=== PATIENT | female | born 1970 | race Caucasian/White ===

== ENCOUNTER 2023-11-29 11:21 | Emergency (ER) | payer BC, SELFPAY ==
[2023-11-29 11:27] VITALS: BP 171/107
--- NOTE | 2023-11-29 11:47 | ED.GENMED ---
History of Present Illness
General
Chief Complaint: Chest Pain
Source: patient
Exam Limitations: none
Time Seen by Provider: 11/29/23 11:33
Travel History
Have you had any contact with someone who has COVID-19?: No
Do you have any symptoms of coronavirus? Fever > 100 degrees, chills, cough, shortness of breath, sore throat, loss of taste or smell, muscle aches, or headache?: No
History of Present Illness
History of Present Illness:
See MDM
Past History
Past History
ED Past Medical History: HTN, Psychiatric (Anxiety) and Other (IBS, colitis); Negative Asthma, Hypercholesterolemia or NIDDM
ED Past Surgical History: Gynecological, Orthopedic (Rotator cuff repair) and Other (Breast augmentation, bilateral cataract surgery)
Social History
Tobacco: Non-smoker
Alcohol: Occasional
Personal:
Living: with family
Phy Exam
Physical Exam
Physical Exam:
See MDM
Scores
Heart Score for Chest Pain Patients
STEMI patient?: No
History: Slightly or Non-Suspicious
ECG: Nonspecific Repolarization
Age: >45 - <65 years
Risk Factors: 1 or 2 Risk Factors
Troponin: </= Normal Limit
Heart Score for Chest Pain Patients: 3
Heart Score Risk: 2.5% MACE over next 6 weeks
Course
Orders/Labs/Results
Orders:
Orders
11/29/23 11:22
EKG [Electrocardiogram (*1)] Urgent
Reason for Study: Atrial Fibrillation
EKG- Treatment ONCE
11/29/23 11:44
Ketorolac [Toradol] 30 mg IV NOW STA
Lorazepam [Ativan] 1 mg IV NOW STA
11/29/23 11:45
Test Result ONCE
CR Chest - 2 Views Urgent
Comment:
Reason For Exam: chest pain
11/29/23 12:07
Complete Blood Count/With Diff Urgent
Comprehensive Metabolic Panel Urgent
HCG, Serum Qualitative Screen Urgent
Troponin I Urgent
11/29/23 13:36
Troponin I Urgent
Abnormal Lab Results
11/29/23
12:07
Hct 36.2 L %
(37.0-47.0)
MCV 74.6 L fL
(81.0-99.0)
MCH 24.7 L pg
(27.0-31.0)
RDW 16.8 H %
(11.5-14.5)
Lymphocytes % 18.5 L %
(20.5-51.1)
Chloride 109 H mmol/L
(98-107)
11/29/23 12:07
11/29/23 12:07
Vital Signs
Initial and Last Documented VS:
Initial Vital Signs
Temp Pulse Resp BP Pulse Ox
98.2 F 94 16 171/107 98
11/29/23 11:27 11/29/23 11:27 11/29/23 11:27 11/29/23 11:27 11/29/23 11:27
Last Documented Vital Signs
Temp Pulse Resp BP Pulse Ox
98.2 F 83 26 137/81 97
11/29/23 11:27 11/29/23 15:00 11/29/23 15:00 11/29/23 15:00 11/29/23 15:00
MDM/Problems Addressed
Differential Diagnosis Includes:
HPI and MDM Narrative:
53-year-old female presenting with left-sided chest pain. Patient states it is going to her jaw. This started at rest at 9 AM. She does not believe there is an exertional component to this. When into the room, she is hyperventilating and clearly
anxious. She acknowledges that she has a history of anxiety. I will give IV Ativan but discussed that we will not base this on the setting of anxiety and will perform a 2 troponin rule out. Will obtain chest x-ray. No clinical signs of DVT. She
is neither tachycardic nor hypoxic.
Screening EKG does show subtle inferior ST depressions. We discussed ultimately seeing a last model department supervisor at some point whether or not she needs to be admitted for elevated troponin or outpatient follow-up
Physical exam
General: Hyperventilating, anxious
HEENT: protecting airway
Neck: appears supple
CV: No evidence of cyanosis. Regular rate and rhythm
Resp: No accessory muscle use. Lungs clear
Abd: Non-distended
Extremities: No deformities. No leg edema or tenderness
Neuro: alert
Psych: Anxious
Skin: Intact
Problems Addressed including Acute and Chronic Conditions affecting care:
1. Chest pain
Acuity: acute
Prognosis: stable
Details: Given the subtle EKG findings and complaint, will obtain 2 troponin rule out. Will give Toradol
2. Anxiety
Acuity: acute
Prognosis: stable
Details: Will give dose of IV Ativan
3. Hypertension
Acuity: acute
Prognosis: stable
Details: Patient has not yet started the 'water pill' prescribed by her primary care doctor. Will monitor blood pressure after giving Toradol and Ativan
Updates
On multiple reassessments, patient feeling better. Troponin negative x 2. Chest x-ray clear. Symptoms resolving. Blood pressure resolving. Discussed outpatient follow-up with PCP and cardiology
Differential Diagnosis (but not limited to): ACS, noncardiac chest pain, anxiety
Testing considered: D-dimer but no clinical evidence of DVT and she is neither tachycardic nor hypoxic
Drug therapy (if applicable): OTC meds, please see d/c instruction regarding Rx drugs
Amount and/or Complexity of Data Reviewed
Clinical info obtained from: Patient
External data reviewed: N/A
Labs I independently reviewed (but not limited to): troponin
Radiology: X-ray independently reviewed: Chest x-ray clear
Pulse Ox: not hypoxic
EKG independently reviewed: Sinus rhythm, normal axis, no STEMI, subtle ST depressions inferiorly
Signal Circuit Designer: Sinus rhythm
Critical Care: N/A
Risk of Complication:
Social Determinants of health: Good social support
Discussed with other providers: N/A
Escalation of Care includes Admit/Obs: After being observed in the Emergency Department, pt stable for discharge.
Occasional wrong word or 'sound a like' substitutions may have occurred due to the inherent limitations of voice recognition software. Read the chart carefully and recognize, using context, where substitutions have occurred.
*Critical Care Note
Total Time (30-74mins, 75-104mins- exclusive of procedures): Not Applicable
ED Attending Note
-
Portions of this chart may have been created with voice recognition software.� Occasional wrong word or��sound alike� substitutions may have occurred due to the inherent limitations of voice recognition software.
Discharge Plan
Departure
Patient with high blood pressure during this ER visit?: Yes
Discharge Problem:
Chest pain
Instructions: Chest Pain PCP Follow Up, BLOOD PRESSURE
Prescriptions:
No Action
ondansetron HCl 4 MG tablet
4 mg PO Q8HPRN PRN (Reason: nausea/vomiting) Qty: 10 0RF
Referrals:
Dong Reynolds MD [Active] -
Xiomy Kelley DO [Family Provider] -
Activity Restrictions/Additional Instructions:
Please return for any worsening symptoms.
You may return at any time if you have further concerns.
Please follow up with your doctor at the first available appointment, preferably this week.
Please make an appointment to see the last model department supervisor.
Thank you for choosing [facility].
Interventions
Interventions:
*Risk Screen - Suicide Last Done: 11/29/23 12:02
*General Assessment Last Done: 11/29/23 12:02
*Neglect/Abuse Screening Last Done: 11/29/23 12:02
ED- Fall Risk Assessment Last Done: 11/29/23 12:32
*ED COVID-19 Vaccine History Last Done: 11/29/23 11:27
ED- Cardiac Assessment Last Done: 11/29/23 12:02
[2023-11-29 11:50] VITALS: BP 161/100
[2023-11-29 12:02] VITALS: BMI 31.1
[2023-11-29 12:04] VITALS: BP 151/88
[2023-11-29 12:14] LABS: % Basophils 0.9 % (0-2); % Eosinophils 1.8 % (0-6); % Immature Granulocytes 0.2 % (0-0.5); % Lymphocytes 18.5 % (20.5-51.1); % Monocytes 4.5 % (1.7-9.3); % Neutrophils 74.1 % (42.2-75.2); Absolute Basophils 0.1 10^3/uL (0-0.2); Absolute Eosinophils 0.2 10^3/uL (0-0.7); Absolute Lymphocytes 1.5 10^3/uL (1.2-3.4); Absolute Monocytes 0.4 10^3/uL (0.1-0.6); Absolute Neutrophils 6.1 10^3/uL (1.4-6.5); Hematocrit 36.2 % (37.0-47.0); Mean Corp Hgb Conc. 33.1 g/dL (33.0-37.0); Mean Corpuscular Hgb 24.7 pg (27.0-31.0); Mean Corpuscular Volume 74.6 fL (81.0-99.0); Mean Platelet Volume 9.6 fL (7.4-10.4); Nucleated Red Blood Cells % 0 %; Platelet Count 361 10^3/uL (130-400); Red Blood Cell Count 4.85 10^6/uL (4.20-5.40); Red Cell Dist. Width 16.8 % (11.5-14.5); White Blood Cell Count 8.2 10^3/uL (4.8-10.8)
[2023-11-29] MEDS: ATIVAN 1 MG IV (12:14)
[2023-11-29] MEDS: TORADOL 30 MG IV (12:14)
[2023-11-29 12:24] LABS: HCG, Serum Qualitative Screen Negative
[2023-11-29 12:27] LABS: ALT (SGPT) 25 U/L (0-35); AST (SGOT) 33 U/L (14-36); Albumin 4.2 g/dl (3.5-5.0); Alkaline Phosphatase 116 U/L (38-126); Blood Urea Nitrogen 11 mg/dl (7-17); Carbon Dioxide 23 mmol/L (22-30); Chloride 109 mmol/L (98-107); Estimated Creatinine Clearance 83 ml/min; Glucose 97 mg/dl (70-99); Sodium 138 mmol/L (135-145); Total Bilirubin 0.6 mg/dl (0.2-1.3); Total Protein 7.6 g/dl (6.3-8.2); eGFR > 60.00
[2023-11-29 12:39] LABS: Troponin I < 0.012 ng/ml
[2023-11-29 13:00] VITALS: BP 134/81
[2023-11-29 14:00] VITALS: BP 135/94
[2023-11-29 14:33] LABS: Troponin I < 0.012 ng/ml
[2023-11-29 15:00] VITALS: BP 137/81
== END 2023-11-29 15:28 | disposition home or self-care (01) ==
LOC: EMR 11:21
PROVIDERS: EMERGENCY PHYSICIAN Student in an Organized Health Care Education/Training Program; FAMILY PHYSICIAN Family Medicine
DX: R07.89 Other chest pain (principal); I10 Essential (primary) hypertension; F41.9 Anxiety disorder, unspecified; K58.9 Irritable bowel syndrome, unspecified; I48.91 Unspecified atrial fibrillation
CPT/HCPCS: 99283; 96374; 96375; 71046; 80053; 84484; 84703; 85025; 93005

== ENCOUNTER 2025-05-05 18:19 | Emergency (ER) | payer BC, SELFPAY ==
[2025-05-05 18:26] VITALS: BP 158/81; BMI 27.1
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
[2025-05-05 19:32] LABS: Hematocrit 31.9 % (37.0-47.0); Hemoglobin 10.5 g/dL (12.0-16.0); Mean Corp Hgb Conc. 32.9 g/dL (33.0-37.0); Mean Corpuscular Volume 75.2 fL (81.0-99.0); Nucleated Red Blood Cells % 0 %; Platelet Count 367 10^3/uL (130-400); Red Cell Dist. Width 21.4 % (11.5-14.5)
[2025-05-05 19:51] LABS: ALT (SGPT) 21 U/L (0-35); AST (SGOT) 27 U/L (14-36); Albumin 4.5 g/dl (3.5-5.0); Alkaline Phosphatase 85 U/L (38-126); Blood Urea Nitrogen 16 mg/dl (7-17); Calcium 9.3 mg/dl (8.4-10.2); Carbon Dioxide 25 mmol/L (22-30); Chloride 111 mmol/L (98-107); Estimated Creatinine Clearance 77 ml/min; Glucose 102 mg/dl (70-99); Potassium 3.3 mmol/L (3.5-5.1); Sodium 143 mmol/L (135-145); Total Protein 7.6 g/dl (6.3-8.2); eGFR > 60.00
[2025-05-05 19:52] LABS: HCG, Serum Qualitative Screen Negative
[2025-05-05] MEDS: TYLENOL 1000 MG PO (20:35)
[2025-05-05] MEDS: BENADRYL 25 MG IV ×2 (21:00→22:27)
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
--- NOTE | 2025-05-06 00:37 | ED TECH ---
PT was given paper scrubs to change into. PT brought this PCT her pajama shorts and showed a bracelet that had been tied to the drawstring. PT told this PCT 'see look there is a fucking camera, you need to tell them, its really there'. This PCT had
PT drop the shorts into the belonging bag which is outside of room 34. Then the PT started removing a bunch of jewerly and threw them onto stretcher, I offered to place them in a cup for safe keeping, the PT was agreeable. Contents were 2 silver
bracelets, a watch, and just one earring.
[2025-05-06 01:09] VITALS: BP 161/88
[2025-05-06] MEDS: KLONOPIN 1 MG PO (01:10)
[2025-05-06] MEDS: LYRICA 100 MG PO (01:10)
[2025-05-06] MEDS: ZOLOFT 150 MG PO (01:11)
[2025-05-06] MEDS: SINGULAIR 10 MG PO (01:11)
[2025-05-06] MEDS: BUSPAR 10 MG PO (01:48)
== END 2025-05-06 02:27 ==
LOC: EMR 18:19
PROVIDERS: EMERGENCY PHYSICIAN Emergency Medicine; FAMILY PHYSICIAN Family Medicine
DX: F29 Unspecified psychosis not due to a substance or known physiological condition (principal); F31.9 Bipolar disorder, unspecified; R45.851 Suicidal ideations; F14.10 Cocaine abuse, uncomplicated; F22 Delusional disorders; M79.671 Pain in right foot; M25.532 Pain in left wrist; R45.1 Restlessness and agitation; R44.3 Hallucinations, unspecified; D64.9 Anemia, unspecified; I10 Essential (primary) hypertension; F41.9 Anxiety disorder, unspecified; K58.9 Irritable bowel syndrome, unspecified; K52.9 Noninfective gastroenteritis and colitis, unspecified; F43.10 Post-traumatic stress disorder, unspecified; F12.10 Cannabis abuse, uncomplicated; J45.909 Unspecified asthma, uncomplicated; G62.9 Polyneuropathy, unspecified; K51.90 Ulcerative colitis, unspecified, without complications; Z91.410 Personal history of adult physical and sexual abuse; Z91.040 Latex allergy status; Z88.2 Allergy status to sulfonamides; Z88.8 Allergy status to other drugs, medicaments and biological substances; Z91.048 Other nonmedicinal substance allergy status
CPT/HCPCS: 99285; 96374; 96376; 73140; 73560; 73630; 80053; 80306; 80307; 82077; 84703; 85025